=== PATIENT | female | born 1985 | race Caucasian/White ===

== ENCOUNTER 2018-05-25 12:16 | Emergency (ER) | payer SELFPAY ==
[~2018-05-25] VITALS: Ht 154.9 cm; Wt 99.8 kg
[~2018-05-25 12:16] MED LIST: ACET500T68 PO; AMOX875T PO; CLIN300C8 PO; DIPH25CA58 PO; OFLO10DR21 AS; PREN1TAB58 PO
--- NOTE | 2018-05-25 13:02 | ED.ADGEN ---
Past History Past Medical History: Depression, Gallstones Past Surgical History: Cholecystectomy, Smoking: Non-smoker Alcohol Use: None Drug Use: None Adult General HPI HPI Patient believes she may have been bitten by an insect 2 days ago. Patient has swelling and redness on her right posterior arm. She's had pain and swelling for last 2 days, no drainage. Last tetanus shot was 2 years ago. Review of Systems Review of Systems Constitutional: Denies fever or chills Eyes: Denies change in visual acuity, redness, or eye pain HENT: Denies nasal congestion or sore throat Respiratory: Denies cough or shortness of breath Cardiovascular: Denies chest pain or palpitations GI: Denies abdominal pain, nausea, vomiting, bloody stools or diarrhea : Denies dysuria or hematuria Musculoskeletal: Denies back pain or joint pain Integument: Denies rash, with right arm skin lesion Neurologic: Denies headache, focal weakness or sensory changes Endocrine: Denies polyuria or polydipsia All other systems were reviewed and found to be within normal limits, except as documented in this note. Allergies Allergies Allergies Coded Allergies Type Severity Reaction Last Updated Verified peanut Allergy Severe Shortness of Air 03/21/15 Yes ibuprofen Adverse Reaction Unknown vomiting 03/21/15 Yes Physical Exam Physical Exam Constitutional: Well developed, well nourished, no acute distress, non-toxic appearance. HENT: Normocephalic, atraumatic, bilateral external ears normal, oropharynx moist, no oral exudates, nose normal. Eyes: PERRLA, EOMI, conjunctiva normal, no discharge. Neck: Normal range of motion, no tenderness, supple, no stridor. Cardiovascular:Heart rate regular rhythm, no murmur Lungs & Thorax: Bilateral breath sounds clear to auscultation Abdomen: Bowel sounds normal, soft, no tenderness, no masses, no pulsatile masses. Skin: Warm, dry, no erythema, no rash. With right posterior arm localized swelling 2X2cm with induration, no fluctuance Back: No tenderness, no CVA tenderness. Extremities: With posterior arm tenderness and swelling, no cyanosis, no clubbing, ROM intact, no edema. Neurologic: Alert and oriented X 3, normal motor function, normal sensory function, no focal deficits noted. Psychologic: Affect normal, judgement normal, mood normal. Current Patient Data Vital Signs Vital Signs Date Time Temp Pulse Resp B/P (MAP) Pulse Ox O2 Delivery O2 Flow Rate FiO2 05/25/18 13:35 83 20 120/60 (80) 100 Room Air 05/25/18 12:16 98.2 EKG EKG [] Radiology/Procedures Radiology/Procedures [] Course & Med Decision Making Course & Med Decision Making Patient presents with right arm infected skin lesion DDx- Abscess, Cellulitis, infected insect bite, MRSA The patient was stable in the ED. Last tetanus shot up to date. Right arm lesion consistent with infected insect bite, no fluctuance or drainage , doubt abscess. Will treat erythema and induration with Bactrim and Keflex. Patient to follow-up with PCP for wound check and return to the ED if worse. Final Impression Final Impression Clinical Impression Right Arm Infected Insect Bite Right Arm Cellulitis Dragana Disclaimer Shanda Disclaimer This electronic medical record was generated, in whole or in part, using a voice recognition dictation system. Departure Departure: Impression: Primary Impression: Cellulitis of right upper limb Additional Impression: Insect bite of arm, right, infected Scripts Sulfamethoxazole/Trimethoprim (BACTRIM DS TABLET) 1 Each Tablet 2 TAB PO BID, #40 TAB Prov: FAREED JANE MD 05/25/18 Cephalexin (KEFLEX) 500 Mg Capsule 1 CAP PO TID, #30 CAP Prov: FAREED JANE MD 05/25/18 FAREED JANE MD May 25, 2018 13:02
[2018-05-25] MEDS ORDERED: SULF1TAB24 PO (13:14)
[2018-05-25] MEDS ORDERED: CEPH-264 PO (13:14)
[2018-05-25 13:35] VITALS: BP 120/60
== END 2018-05-25 13:25 | disposition home or self-care (01) ==
LOC: ER 12:16
DX: L03.113 Cellulitis of right upper limb (principal); S40.861A Insect bite (nonvenomous) of right upper arm, initial encounter; Z88.6 Allergy status to analgesic agent; Z91.010 Allergy to peanuts; W57.XXXA Bitten or stung by nonvenomous insect and other nonvenomous arthropods, initial encounter; Y93.89 Activity, other specified; Y92.89 Other specified places as the place of occurrence of the external cause; Y99.8 Other external cause status
CPT/HCPCS: 99283

== ENCOUNTER 2018-05-31 12:54 | Emergency (ER) | payer SELFPAY ==
[~2018-05-31] VITALS: Ht 154.9 cm; Wt 99.8 kg
[~2018-05-31 12:54] MED LIST changes: +CEPH-264 PO; +SULF1TAB24 PO
[2018-05-31 13:05] VITALS: BP 136/81
--- NOTE | 2018-05-31 16:31 | ED.ADGEN ---
Past History Past Medical History: Anxiety, Depression, Gallstones Past Surgical History: Cholecystectomy, Smoking: Non-smoker Alcohol Use: None Drug Use: None Adult General HPI HPI Patient is a 32 year old female who presents with foreign body stuck in the left ear. Patient has hearing loss at baseline and wears bilateral hearing aids. Today, the deepest rubber tip off of one of her hearing aids became stuck in the left ear. Incident just happened. She was unable to get it out at home. No additional complaints. No injuries. Review of Systems Review of Systems Constitutional: Denies fever or chills Eyes: Denies change in visual acuity, redness, or eye pain HENT: Denies nasal congestion or sore throat Respiratory: Denies cough or shortness of breath Cardiovascular: No additional information Neurologic: Denies headache All other systems were reviewed and found to be within normal limits, except as documented in this note. Allergies Allergies Allergies Coded Allergies Type Severity Reaction Last Updated Verified peanut Allergy Severe Shortness of Air 03/21/15 Yes ibuprofen Adverse Reaction Unknown vomiting 03/21/15 Yes Physical Exam Physical Exam Constitutional: Well developed, well nourished, no acute distress, non-toxic appearance HENT: Normocephalic, atraumatic, bilateral external ears normal, oropharynx moist, no oral exudates, nose normal, rubber foreign body is easily visualized in the left ear canal Eyes: PERRLA, EOMI, conjunctiva normal Neck: Normal range of motion Cardiovascular:Heart rate regular rhythm Lungs & Thorax: Bilateral breath sounds clear to auscultation Skin: Warm, dry Neurologic: Alert and oriented X 3 Psychologic: Affect normal Current Patient Data Vital Signs Vital Signs Date Time Temp Pulse Resp B/P (MAP) Pulse Ox O2 Delivery O2 Flow Rate FiO2 05/31/18 13:05 98.2 98 18 99 Room Air EKG EKG [] Radiology/Procedures Radiology/Procedures [] Course & Med Decision Making Course & Med Decision Making Pertinent Labs and Imaging studies reviewed. (See chart for details) Patient is evaluated immediately upon arrival to the ER. She does have a foreign body in the left ear. The foreign body is easily visualized on examination. Alligator forceps were used to remove the foreign body. There was no significant trauma or derangement of the tympanic membrane following removal. This was a very fast and non-difficult procedure. Patient is discharged home. Encouraged to follow-up with her primary doctor or come back to the ER for any new or worsening symptoms. Final Impression Final Impression Foreign Body left ear (removed) Shanda Disclaimer Shanda Disclaimer This electronic medical record was generated, in whole or in part, using a voice recognition dictation system. BIMAL APARICIO DO May 31, 2018 16:31
== END 2018-05-31 13:20 | disposition home or self-care (01) ==
LOC: ER 12:54
DX: T16.2XXA Foreign body in left ear, initial encounter (principal); Z88.6 Allergy status to analgesic agent; Z91.010 Allergy to peanuts; X58.XXXA Exposure to other specified factors, initial encounter; Y93.89 Activity, other specified; Y92.89 Other specified places as the place of occurrence of the external cause; Y99.8 Other external cause status
CPT/HCPCS: 69200; 99284

== ENCOUNTER 2019-01-10 02:06 | Emergency (ER) | payer SELFPAY ==
[~2019-01-10] VITALS: Ht 154.9 cm; Wt 100.2 kg
[2019-01-10 02:10] VITALS: BP 131/77
[2019-01-10] MEDS ORDERED: AMOX500C PO (02:34)
--- NOTE | 2019-01-10 02:34 | PHYS DOC ---
Past History Past Medical History: Depression Past Surgical History: Cholecystectomy, Smoking: Non-smoker Alcohol Use: None Drug Use: None Adult General Chief Complaint Chief Complaint: EARACHE/EAR PAIN HPI HPI She is a 33-year-old female presents to the emergency department for evaluation of right ear pain which began this morning. She has not taken anything for pain , denies any fevers or chills. She has had some mild nasal congestion over the past few days. She has not had any fevers or chills. There are no alleviating or exacerbating factors to her symptoms otherwise. Review of Systems Review of Systems Constitutional: Denies fever or chills [] Eyes: Denies change in visual acuity, redness, or eye pain [] HENT: Denies nasal congestion or sore throat [] Respiratory: Denies cough or shortness of breath [] Neurologic: Denies headache, focal weakness or sensory changes [] Allergies Allergies Allergies Coded Allergies Type Severity Reaction Last Updated Verified peanut Allergy Severe Shortness of Air 03/21/15 Yes ibuprofen Adverse Reaction Unknown vomiting 03/21/15 Yes Physical Exam Physical Exam PHYSICAL EXAM: CONSTITUTIONAL: Well developed, well nourished HEAD: normocephalic, atraumatic EENT: PERRL, EOMI. Conjunctivae normal color, sclerae non-icteric; moist mucous membranes. Left tympanic membrane appears normal. The right tympanic membrane is erythematous and distended. There is no auricular tenderness to palpation, there is no mastoid tenderness to palpation. NECK: Supple, non-tender; no meningismus. LUNGS: Lungs CTA, breathing even and unlabored. Normal air movement. HEART: Regular rate and rhythm, no murmur CHEST: No deformity; non-tender ABDOMEN: The abdomen is soft, and non-tender, no masses or bruits. EXTREM: Normal ROM; no deformity, no calf tenderness. Normal pulses palpable in all extremities. There is no pedal edema. SKIN: No rash; no diaphoresis NEURO: Alert; normal speech and cognition; CN's grossly intact; strength grossly intact without focal deficit. BACK: No CVA TTP. Current Patient Data Vital Signs Vital Signs Date Time Temp Pulse Resp B/P (MAP) Pulse Ox O2 Delivery O2 Flow Rate FiO2 01/10/19 02:10 97.9 89 20 99 Room Air EKG EKG [] Radiology/Procedures Radiology/Procedures [] Dragon Disclaimer Dragon Disclaimer This electronic medical record was generated, in whole or in part, using a voice recognition dictation system. Departure Departure: Impression: Primary Impression: Otitis media Disposition: HOME, SELF-CARE Condition: STABLE Referrals: HIREN LAIRD (PCP) Patient Instructions: Otitis Media, Adult Scripts Amoxicillin (AMOXICILLIN) 500 Mg Capsule 1 CAP PO TID for OM, #30 CAP Prov: NADINE RO MD 01/10/19 NADINE RO MD Jan 10, 2019 02:34
[2019-01-10] MEDS ORDERED: AMOXICILLIN 250 MG CAPSULE PO ONE (03:00)
[2019-01-10] MEDS ORDERED: ACETAMINOPHEN 500 MG TABLET PO ONE (03:00)
== END 2019-01-10 03:00 | disposition home or self-care (01) ==
LOC: ER 02:06
DX: H66.91 Otitis media, unspecified, right ear (principal); R09.81 Nasal congestion; F32.9 Major depressive disorder, single episode, unspecified; Z88.6 Allergy status to analgesic agent; Z91.010 Allergy to peanuts
CPT/HCPCS: 99283

== ENCOUNTER 2019-04-25 15:15 | Emergency (ER) | payer SELFPAY ==
[~2019-04-25] VITALS: Ht 154.9 cm; Wt 104.0 kg
[~2019-04-25 15:15] MED LIST changes: +AMOX500C PO
[2019-04-25 15:27] VITALS: BP 147/103
--- NOTE | 2019-04-25 15:38 | PHYS DOC ---
Past History Past Medical History: Depression, GERD Past Surgical History: Cholecystectomy, Smoking: Non-smoker Alcohol Use: None Drug Use: None Adult General Chief Complaint Chief Complaint: FOOT INJURY PAIN HPI HPI 33-year-old female presents with right foot pain. The patient fell off a 2-3 foot step ladder at home 1 weeks ago. She has been able to walk on it. She continues to have pain with weightbearing, flexion, and extension of the foot. The pain radiates up and down the medial half of the foot. Her pain feels deep to that area. There is no obvious deformity or ecchymosis. Patient is to take Tylenol and ibuprofen but it doesn't seem to be getting better. She denies any other injuries or complaints. Review of Systems Review of Systems Constitutional: Denies fever or chills [] Eyes: Denies change in visual acuity, redness, or eye pain [] HENT: Denies nasal congestion or sore throat [] Respiratory: Denies cough or shortness of breath [] Cardiovascular: No additional information not addressed in HPI [] GI: Denies abdominal pain, nausea, vomiting, bloody stools or diarrhea [] : Denies dysuria or hematuria [] Musculoskeletal: Right foot pain[] Integument: Denies rash or skin lesions [] Neurologic: Denies headache, focal weakness or sensory changes [] Endocrine: Denies polyuria or polydipsia [] All other systems were reviewed and found to be within normal limits, except as documented in this note. Allergies Allergies Allergies Coded Allergies Type Severity Reaction Last Updated Verified peanut Allergy Severe Shortness of Air 03/21/15 Yes ibuprofen Adverse Reaction Unknown vomiting 03/21/15 Yes Physical Exam Physical Exam Constitutional: Well developed, well nourished, no acute distress, non-toxic appearance. [] HENT: Normocephalic, atraumatic, bilateral external ears normal, oropharynx moist, no oral exudates, nose normal. [] Eyes: PERRLA, EOMI, conjunctiva normal, no discharge. [] Neck: Normal range of motion, no tenderness, supple, no stridor. [] Cardiovascular:Heart rate regular rhythm, no murmur [] Lungs & Thorax: Bilateral breath sounds clear to auscultation [] Abdomen: Bowel sounds normal, soft, no tenderness, no masses, no pulsatile masses. [] Skin: Warm, dry, no erythema, no rash. [] Back: No tenderness, no CVA tenderness. [] Extremities: Tenderness along the medial aspect of the right foot. No ecchymosis or obvious deformity [] Neurologic: Alert and oriented X 3, normal motor function, normal sensory function, no focal deficits noted. [] Psychologic: Affect normal, judgement normal, mood normal. [] Current Patient Data Vital Signs Vital Signs Date Time Temp Pulse Resp B/P (MAP) Pulse Ox O2 Delivery O2 Flow Rate FiO2 04/25/19 15:27 98.1 111 22 99 Room Air EKG EKG [] Radiology/Procedures Radiology/Procedures [] Impressions: Right foot, 3 views, 04/25/2019: HISTORY: Fall from ladder No fracture or dislocation is identified. There is mild subcutaneous edema. IMPRESSION: No acute bony abnormality is detected. Electronically signed by: Ez Estrada MD (04/25/2019 3:54 PM) [facility] DICTATED AND SIGNED BY: EZ ESTRADA MD DATE: 04/25/19 1554 CC: TONE QUINTERO DO; HIREN LAIRD ~ Course & Med Decision Making Course & Med Decision Making Pertinent Labs and Imaging studies reviewed. (See chart for details) The patient does not have a fracture dislocation. I believe this is a midfoot sprain. I will offer a walking shoe. The patient would like she will. We have fitted her for one. She can continue Tylenol and ibuprofen for pain. She is stable for discharge at this time. [] Dragon Disclaimer Dragon Disclaimer This electronic medical record was generated, in whole or in part, using a voice recognition dictation system. Departure Departure: Impression: Primary Impression: Right foot sprain Disposition: 01 HOME, SELF-CARE Condition: STABLE Referrals: HIREN LAIRD (PCP) Patient Instructions: Foot Sprain Problem Qualifiers Primary Impression: Right foot sprain Encounter type: initial encounter Qualified Codes: S93.601A - Unspecified sprain of right foot, initial encounter TONE QUINTERO DO Apr 25, 2019 15:38
--- NOTE | 2019-04-25 15:56 | RAD ---
Right foot, 3 views, 04/25/2019: HISTORY: Fall from ladder No fracture or dislocation is identified. There is mild subcutaneous edema. IMPRESSION: No acute bony abnormality is detected. Electronically signed by: Ez Estrada MD (04/25/2019 3:54 PM) [facility]
== END 2019-04-25 16:17 | disposition home or self-care (01) ==
LOC: ER 15:15
DX: S93.601A Unspecified sprain of right foot, initial encounter (principal); F32.9 Major depressive disorder, single episode, unspecified; K21.9 Gastro-esophageal reflux disease without esophagitis; Z88.6 Allergy status to analgesic agent; Z91.010 Allergy to peanuts; W11.XXXA Fall on and from ladder, initial encounter; Y93.89 Activity, other specified; Y92.89 Other specified places as the place of occurrence of the external cause; Y99.8 Other external cause status
CPT/HCPCS: 73630; 99284

== ENCOUNTER 2019-10-04 08:42 | Emergency (ER) | payer BC ==
[~2019-10-04] VITALS: Ht 154.9 cm; Wt 103.0 kg
[2019-10-04 08:42] VITALS: BP 132/97
[2019-10-04] MEDS ORDERED: MECL25TA3 PO (09:10)
--- NOTE | 2019-10-04 11:02 | PHYS DOC ---
Past History Past Medical History: Depression, GERD Past Surgical History: Cholecystectomy, Smoking: Non-smoker Alcohol Use: None Drug Use: None Adult General Chief Complaint Chief Complaint: OTHER COMPLAINTS HPI HPI Patient is a 34-year-old female presenting with chief complaint of primary complaint is that of lymph node swelling she is very concerned because she had a 3-year-old that from leukemia she has noticed for the last 2 months lymph nodes in her neck or swelling over the last 2-3 days she thinks they have swollen more she feels dizzy when she is at work she has to grab the counter she works at [employer] she called out today because she was not feeling well. Sumi nix has no appointment on October 09 with an ENT doctor for an evaluation Patient also has body aches she just doesn't feel well all over her elbow hurts her low back has been hurting for over a month now she just cannot feels weak at times. She is worried because there lymph node she feels them in her axilla as well and she is very concerned about the possibility of malignancy Medical decision making I did talk to the patient for several minutes we talked about the general workup of lymphadenopathy which the primary test that she probably needs now is a fine-needle aspiration because she has had these symptoms for over a month she does have some palpable lymphadenopathy in the left anterior neck although I would classify her overall as mild. It was not matted or hard it was minimally tender anyway we will give her a prescription for meclizine neurologic exam showed no objective neurologic deficit she will follow-up October 09 as scheduled with ENT I did give her couple days off work she understood she does appear quite anxious which is understandable given the history that she described above Review of Systems Review of Systems Constitutional: Denies fever or chills [] Eyes: Denies change in visual acuity, redness, or eye pain [] HENT: Respiratory: Denies cough or shortness of breath [] Neurologic: Denies headache, focal weakness or sensory changes [] Endocrine: Denies polyuria or polydipsia [] All other systems were reviewed and found to be within normal limits, except as documented in this note. Allergies Allergies Allergies Coded Allergies Type Severity Reaction Last Updated Verified peanut Allergy Severe Shortness of Air 03/21/15 Yes ibuprofen Adverse Reaction Unknown vomiting 03/21/15 Yes Physical Exam Physical Exam Constitutional: Well developed, well nourished, no acute distress, non-toxic appearance. [] HENT: Normocephalic, atraumatic, bilateral external ears normal, oropharynx moist, no oral exudates, nose normal. [] Eyes: PERRLA, EOMI, conjunctiva normal, no discharge. [] Neck: Normal range of motion, there is approximately 1 cm mildly tender anterior cervical lymphadenopathy more on the left airways patent posterior oropharynx normal I don't appreciate any lymphadenopathy in the axilla or the supraclavicular area Cardiovascular:Heart rate regular rhythm, no murmur [] Lungs & Thorax: Bilateral breath sounds clear to auscultation [] Abdomen: Bowel sounds normal, soft, no tenderness, no masses, no pulsatile masses. [] Skin: Warm, dry, no erythema, rash noted on face Extremities: No tenderness, no cyanosis, no clubbing, ROM intact, no edema. [] Neurologic: Alert and oriented X 3, normal motor function, normal sensory function, no focal deficits noted. [] Psychologic: Anxious Current Patient Data Vital Signs Blood pressure was elevated in the emergency room probably related to anxiety recommended follow-up in 1 week for recheck see nurse's note for complete vitals EKG EKG [] Radiology/Procedures Radiology/Procedures [] Course & Med Decision Making Course & Med Decision Making Pertinent Labs and Imaging studies reviewed. (See chart for details) []34-year-old female with complaint of lymphadenopathy she does have some dizziness known cerebellar findings the [id number] was intact bilaterally, no nerves are intact she does have some mild lymphadenopathy of the anterior neck and she has appropriate follow-up in a few days at the ENT clinic I reassured her as best I could and recommended close follow-up as she already arranged Dragon Disclaimer Shanda Disclaimer This electronic medical record was generated, in whole or in part, using a voice recognition dictation system. Departure Departure: Impression: Primary Impression: Lymphadenopathy Disposition: 01 HOME, SELF-CARE Condition: STABLE Additional Instructions: Thank you for coming to the ER today please see her ENT doctor on October 09 to evaluate your enlarged lymph nodes. Please get her blood pressure checked in 1 month with her primary care doctor as well Scripts Meclizine Hcl (MECLIZINE HCL) 25 Mg Tablet 1 TAB PO PRN TID for vertigo, #30 TAB Prov: WANG VALLES MD 10/04/19 WANG VALLES MD Oct 04, 2019 11:02
== END 2019-10-04 09:15 | disposition home or self-care (01) ==
LOC: ER 08:42
DX: R59.0 Localized enlarged lymph nodes (principal); F32.9 Major depressive disorder, single episode, unspecified; K21.9 Gastro-esophageal reflux disease without esophagitis; Z88.6 Allergy status to analgesic agent; Z91.010 Allergy to peanuts
CPT/HCPCS: 99282

== ENCOUNTER 2020-10-26 09:19 | Emergency (ER) | payer BC ==
[~2020-10-26] VITALS: Ht 154.9 cm; Wt 107.0 kg
[~2020-10-26 09:19] MED LIST changes: +MECL-75 PO
[2020-10-26] MEDS ORDERED: methylPREDNISolone SOD SUCC PF 125 MG/2 ML VIAL. IV ONE (10:00)
[2020-10-26 10:09] VITALS: BP 130/83
[2020-10-26] MEDS ORDERED: METH4TAB2 PO (10:14)
[2020-10-26] MEDS ORDERED: methylPREDNISolone SOD SUCC PF 125 MG/2 ML VIAL. IM ONE (10:15)
--- NOTE | 2020-10-26 10:15 | PHYS DOC ---
Past History Past Medical History: Anxiety, Depression, GERD Past Surgical History: Cholecystectomy, Smoking: Non-smoker Alcohol Use: None Drug Use: None General Adult EDM: Chief Complaint: SKIN PROBLEM HPI: HPI: Patient is a [35-year-old female with pruritic rash that started last night. Patient states she has this rash every 3 to 4 months and has been going on for years. 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 Patient has not had allergy testing and denies any new exposures. 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 Patient has a history to p eanuts. Denies any difficulty swallowing, wheezing, shortness of breath. Patient took 1 dose of Benadryl last night with some improvement has not taken any medications today. Denies any fevers, cough, nausea, vomiting, diarrhea. Review of Systems: Review of Systems: Negative other than noted in HPI Current Medications: Current Meds: Current Medications Medications (Trade) Dose Ordered Sig/Ottoniel Start Time Stop Time Status Last Admin Dose Admin Methylprednisolone Sodium Succinate (SOLU-Medrol 125MG VIAL) 125 mg 1X ONCE 10/26/20 10:15 10/26/20 10:16 UNV Allergies: Allergies: Allergies Coded Allergies Type Severity Reaction Last Updated Verified peanut Allergy Severe Shortness of Air 10/26/20 Yes ibuprofen Adverse Reaction Unknown vomiting 10/26/20 Yes Physical Exam: PE: Constitutional: Well developed, well nourished, no acute distress, non-toxic appearance. [] HENT: Normocephalic, atraumatic, bilateral external ears normal, oropharynx moist, no oral exudates, nose normal. [] Eyes: PERRLA, EOMI, conjunctiva injected, no discharge. [] Neck: Normal range of motion, no tenderness, supple, no stridor. [] Cardiovascular:Heart rate regular rhythm, no murmur [] Lungs & Thorax: Bilateral breath sounds clear to auscultation [] Abdomen: Bowel sounds normal, soft, no tenderness, no masses, no pulsatile masses. [] Skin: Blanching macular rash Back: No tenderness, no CVA tenderness. [] Extremities: No tenderness, no cyanosis, no clubbing, ROM intact, no edema. [] Neurologic: Alert and oriented X 3, normal motor function, normal sensory function, no focal deficits noted. [] Psychologic: Affect normal, judgement normal, mood normal. [] Current Patient Data: Vital Signs: Vital Signs Date Time Temp Pulse Resp B/P (MAP) Pulse Ox O2 Delivery O2 Flow Rate FiO2 10/26/20 09:27 98.6 105 18 163/100 (121) 98 Room Air EKG: EKG: [] Radiology/Procedures: Radiology/Procedures: [] Heart Score: Risk Factors: Risk Factors: DM, Current or recent (<one month) smoker, HTN, HLP, family history of CAD, obesity. Risk Scores: Score 0 - 3: 2.5% MACE over next 6 weeks - Discharge Home Score 4 - 6: 20.3% MACE over next 6 weeks - Admit for Clinical Observation Score 7 - 10: 72.7% MACE over next 6 weeks - Early Invasive Strategies Course & Med Decision Making: Course & Med Decision Making Pertinent Labs and Imaging studies reviewed. (See chart for details) [] Dragon Disclaimer: Dragon Disclaimer: This electronic medical record was generated, in whole or in part, using a voice recognition dictation system. Departure Departure: Impression: Primary Impression: Hives of unknown origin Disposition: 01 DC HOME SELF CARE/HOMELESS Condition: STABLE Referrals: HIREN LAIRD (PCP) Patient Instructions: Hives, [id number] Additional Instructions: Start Medrol Dosepak tomorrow and follow-up with your primary care provider to see about allergen testing Scripts Methylprednisolone (MEDROL) 4 Mg Tab.ds.pk 1 PKG PO UD for hives, #1 PKG Prov: KIARA ARRINGTON MD 10/26/20 KIARA ARRINGTON MD Oct 26, 2020 10:15
== END 2020-10-26 10:25 | disposition home or self-care (01) ==
LOC: ER 09:19
DX: L50.9 Urticaria, unspecified (principal); F41.9 Anxiety disorder, unspecified; F32.9 Major depressive disorder, single episode, unspecified; K21.9 Gastro-esophageal reflux disease without esophagitis; Z91.010 Allergy to peanuts; Z88.6 Allergy status to analgesic agent
CPT/HCPCS: 96372; 99283; J2930

== ENCOUNTER 2021-03-04 15:35 | Emergency (ER) | payer BC ==
[~2021-03-04] VITALS: Ht 154.9 cm; Wt 107.0 kg
[2021-03-04 15:35] VITALS: BP 156/98
[~2021-03-04 15:35] MED LIST changes: -CLIN300C8 PO; +CLIN300C9 PO; +METH4TAB2 PO
[2021-03-04] MEDS: methylPREDNISolone ACETATE 80 MG/ML VIAL. IM ONE (18:00)
[2021-03-04] MEDS ORDERED: PRED20TA PO (18:09)
[2021-03-04] MEDS ORDERED: HYDR25TA PO (18:09)
--- NOTE | 2021-03-04 18:10 | PHYS DOC ---
Past History Past Medical History: Anxiety, Depression, GERD, Other Additional Past Medical Histor: sjogrnes syndrom Past Surgical History: Cholecystectomy, Smoking: Non-smoker Alcohol Use: None Drug Use: None Adult General Chief Complaint Chief Complaint: SKIN RASH/ABSCESS HPI HPI Patient is a 35-year-old female presents to the emergency department complaining of a rash that started 3 days ago. Patient states she has an autoimmune disorder and breaks out with similar rashes. Patient states has been 5 months since she has had an outbreak. Patient states she used to get them quite often when she was younger but has been seeing an helix coil winder who has been helping her with her autoimmune disorder management. Patient states she has a appointment to see her helix coil winder this Sunday. Patient states her rash is typical and presents much like all her other rashes have, patient states she has taken 75 mg of Benadryl 3 to 4 hours ago. Patient states that she continues to itch. Patient states when she gets like this she usually receives a steroid shot in her hip and is given a Medrol Dosepak to go home. Patient denies any airway problems, denies any problems swallowing, denies any drooling, denies any drainage from her nose or ears. Patient states she does have a peanut allergy, however states this rash does not present like her allergies do when she eats peanuts. Patient denies any other physical complaints or physical concerns. Review of Systems Review of Systems 14 body systems of review of systems have been reviewed. See HPI for pertinent positives and negative responses, otherwise all other systems are negative, nonpertinent or noncontributory. Allergies Allergies Allergies Coded Allergies Type Severity Reaction Last Updated Verified peanut Allergy Severe Shortness of Air 10/26/20 Yes ibuprofen Adverse Reaction Unknown vomiting 10/26/20 Yes Physical Exam Physical Exam Constitutional: Well developed, well nourished, no acute distress, non-toxic appearance. 35-year-old female appears anxious. Patient is in no respiratory distress HENT: Normocephalic, atraumatic, bilateral external ears normal, oropharynx moist, no oral exudates, nose normal. Oropharynx moist, pink, no rashes no lesions no infectious process appreciated, no laryngeal swelling, no tonsillar swelling, no uvular edema or swelling appreciated. No lymphadenopathy of the head or neck appreciated, bilateral TMs within normal limits, no drainage from external auditory canals, no drainage from nasal turbinates. Eyes: PERRLA, EOMI, conjunctiva normal, no discharge. Neck: Normal range of motion, no tenderness, supple, no stridor. Cardiovascular:Heart rate regular rhythm, no murmur, heart sounds S1-S2 Lungs & Thorax: Bilateral breath sounds clear to auscultation no adventitious lung sounds auscultation. Abdomen: Bowel sounds normal, soft, no tenderness, no masses, no pulsatile masses. Skin: Warm, dry, no erythema, acute raised urticaria rash to arms anterior and posterior trunk, legs, neck. No drainage or lesions noted from rash. Color ranged from light pink to red. Back: No tenderness, no CVA tenderness. Extremities: No tenderness, no cyanosis, no clubbing, ROM intact, no edema. Neurologic: Alert and oriented X 3, normal motor function, normal sensory function, no focal deficits noted. Psychologic: Affect normal, judgement normal, mood normal. Current Patient Data Vital Signs Vital Signs Date Time Temp Pulse Resp B/P (MAP) Pulse Ox O2 Delivery O2 Flow Rate FiO2 03/04/21 15:35 98.4 105 18 156/98 (117) 98 Room Air EKG EKG [] Radiology/Procedures Radiology/Procedures [] Heart Score C/O Chest Pain: No Risk Factors: Risk Factors: DM, Current or recent (<one month) smoker, HTN, HLP, family history of CAD, obesity. Risk Scores: Risk Factors: DM, Current or recent (<one month) smoker, HTN, HLP, family history of CAD, obesity. Course & Med Decision Making Course & Med Decision Making Pertinent Labs and Imaging studies reviewed. (See chart for details) 35-year-old female, vital signs reviewed, presents emergency department concerning a itchy rash for the past 3 days. Physical examination consistent with acute urticaria, this does not appear to be a contact dermatitis, patient states she does have an allergy to peanuts however does not present like her peanut rash allergy. Patient states she has had this type of rash breakout throughout her life and attributes this to her autoimmune disorder. Patient states she has periodic visits to emergency departments for IM injections of steroid and prescriptions for de-escalating oral steroid dose for home. The patient is in no respiratory distress, the patient does not complain of any swelling in her throat or mouth. Discussed with patient will give 80 mg Depo- Medrol, give prescription for 20 mg prednisone x5 days, p.o. hydroxyzine for itching. Patient is amendable to this plan. Discussed with patient strict return to ER precautions. Keep her appointment with her helix coil winder this coming Sunday. Patient gave verbal understanding of discharge home instructions, hydroxyzine use for itching, 20 mg prednisone p.o. daily x5 days prescription, states will keep her appointment this Sunday with her helix coil winder, a verbal understanding of strict return to ER precautions and concerns, patient was discharged home without incident. Dragon Disclaimer Dragon Disclaimer This electronic medical record was generated, in whole or in part, using a voice recognition dictation system. Departure Departure: Impression: Primary Impression: Acute urticaria Disposition: HOME / SELF CARE / HOMELESS Condition: GOOD Referrals: HIREN LAIRD (PCP) Additional Instructions: You are seen today in the emergency department for your rash outbreak. As you indicated this is a typical reaction that requires an IM injection of a steroid and a prescription for prednisone at home. Please keep your appointment with Dr. CRAMER this Sunday and let her know you were given 80 mg of Depo-Medrol IM in the emergency department and started on 20 mg prednisone p.o. x5 days. Please return immediately to the emergency department for worsening symptoms or respiratory distress. I am starting you on hydroxyzine for itching. Please use prescribed medications as directed. EMERGENCY DEPARTMENT GENERAL DISCHARGE INSTRUCTIONS Thank you for coming to [facility] (ED) today and trusting us with you care. We trust that you had a positivie experience in our Emergency Department. If you wish to speak to the department management, you may call the director at [phone]. YOUR FOLLOW UP INSTRUCTIONS ARE FOLLOWS: 1. Do you have a private Doctor? If you do not have a private doctor, please ask for a resource list of physicians or clinics that may be able to assist you with follow up care. 2. The Emergency Physician has interpreted your x-rays. The X-Ray specialist will also review them. If there is a change in the findings, you will be notified in 48 hours when at all possible. 3. A lab test or culture has been done, your results will be reviewed and you will be notified if you need a change in treatment. ADDITIONAL INSTRUCTIONS AND INFORMATION: 1. Your care today has been supervised by a physician who is specially trained in emergency care. Many problems require more than one evaluation for a complete diagnosis and treatment. We recommend that you schedule your follow up appointment as recommended to ensure complete treatment of you illness or injury. If you are unable to obtain follow up care and continue to have a problem, or if your condition worsens, we recommend that you return to the ED. 2. We are not able to safely determine your condition over the phone nor are we able to give sound medical advice over the phone. For these safety reasons, if you call for medical advice we will ask you to come to the ED for further evaluation. 3. If you have any questions regarding these discharge instructions please call the ED at [phone]. SAFETY INFORMATION: In the interest of safety, wellness, and injury prevention; we encourage you to wear your sealbelt, if you smoke; quite smoking, and we encourage family to use a protective helmet for bicycling and other sporting events that present an increased risk for head injury. IF YOUR SYMPTOMS WORSEN OR NEW SYMPTOMS DEVELOP, OR YOU HAVE CONCERNS ABOUT YOUR CONDITION; OR IF YOUR CONDITION WORSENS WHILE YOU ARE WAITING FOR YOUR FOLLOW UP APPOINTMENT; EITHER CONTACT YOUR PRIMARY CARE DOCTOR, THE PHYSICIAN WHOSE NAME AND NUMBER YOU WERE GIVEN, OR RETURN TO THE ED IMMEDIATELY. Scripts Hydroxyzine Hcl (HYDROXYZINE HCL) 25 Mg Tablet 1 TAB PO TID PRN for ALLERGIES, #15 TAB 0 Refills Prov: JAIRO MONROY APRN 03/04/21 Prednisone (PREDNISONE) 20 Mg Tablet 1 TAB PO DAILY for allergies for 5 Days, #5 TAB 0 Refills Prov: JAIRO MONROY APRN 03/04/21 JAIRO MONROY APRN March 04, 2021 18:10
== END 2021-03-04 18:15 | disposition home or self-care (01) ==
LOC: ER 15:35
DX: L50.8 Other urticaria (principal); K21.9 Gastro-esophageal reflux disease without esophagitis; Z91.010 Allergy to peanuts; Z88.6 Allergy status to analgesic agent
CPT/HCPCS: 96372; 99283; J1040

== ENCOUNTER 2021-11-09 17:24 | Emergency (ER) | payer BC ==
[~2021-11-09] VITALS: Ht 154.9 cm; Wt 107.0 kg
[~2021-11-09 17:24] MED LIST changes: +CLIN-95 PO; -CLIN300C9 PO; +HYDR25TA PO; +PRED20TA PO
[2021-11-09 18:44] LABS: INFLUENZA A PATIENT NEGATIVE (NEGATIVE); INFLUENZA B PATIENT NEGATIVE (NEGATIVE)
--- NOTE | 2021-11-10 02:09 | PHYS DOC ---
Past History Past Medical History: Anxiety, Depression, GERD, Migraines, Other Additional Past Medical Histor: sjogrnes syndrom Past Surgical History: Cholecystectomy, Smoking: Non-smoker Alcohol Use: None Drug Use: None General Adult EDM: Chief Complaint: HEADACHE HPI: HPI: ".. I ve had a bad migraine the last couple days.. nausea.. You seen me before for parotid infiltrate due Sorigen" Patient is a 36 year old female who presents with above hx. a typical migraine for her. No hx. Fever, trauma, chills, immuno.suppression, IV drug use , specific ill contacts. + Rheumatology hx. Review of Systems: Review of Systems: Constitutional: Denies fever or chills Eyes: Denies change in visual acuity HENT: Denies nasal congestion or sore throat Respiratory: Denies cough or shortness of breath Cardiovascular: Denies chest pain or edema GI: Denies abdominal pain, nausea, vomiting, bloody stools or diarrhea : Denies dysuria Musculoskeletal: Denies back pain or joint pain Integument: Denies rash Neurologic: Denies headache, focal weakness or sensory changes Endocrine: Denies polyuria or polydipsia Lymphatic: Denies swollen glands Psychiatric: Denies depression or anxiety Allergies: Allergies: Allergies Coded Allergies Type Severity Reaction Last Updated Verified peanut Allergy Severe Shortness of Air 10/26/20 Yes ibuprofen Adverse Reaction Unknown vomiting 10/26/20 Yes Physical Exam: PE: Constitutional: Well developed, well nourished, no acute distress, non-toxic appearance. [] HENT: Normocephalic, atraumatic, bilateral external ears normal, oropharynx moist, no oral exudates, nose normal. [] Eyes: PERRLA, EOMI, conjunctiva normal, no discharge. [] Neck: Normal range of motion, no tenderness, supple, no stridor. [] Cardiovascular:Heart rate regular rhythm, no murmur [] Lungs & Thorax: Bilateral breath sounds clear to auscultation [] Abdomen: Bowel sounds normal, soft, no tenderness, no masses, no pulsatile masses. [] Skin: Warm, dry, no erythema, no rash. [] Back: No tenderness, no CVA tenderness. [] Extremities: No tenderness, no cyanosis, no clubbing, ROM intact, no edema. [] Neurologic: Alert and oriented X 3, normal motor function, normal sensory function, no focal deficits noted. [] Psychologic: Affect normal, judgement normal, mood normal. [] Current Patient Data: Labs: Laboratory Tests Test 11/09/21 17:51 Influenza Type A (Rapid) Negative (NEGATIVE) Influenza Type B (Rapid) Negative (NEGATIVE) SARS-CoV-2 Antigen (Rapid) Negative (NEGATIVE) Vital Signs: Vital Signs Date Time Temp Pulse Resp B/P (MAP) Pulse Ox O2 Delivery O2 Flow Rate FiO2 11/09/21 17:57 98.2 101 18 156/98 (117) 98 Room Air EKG: EKG: [] Radiology/Procedures: Radiology/Procedures: [][address] [address] IMAGING REPORT Signed PATIENT: KIARA PHILIP ACCOUNT: [id number] : 1985 LOCATION: ER AGE: 36 SEX: F EXAM STATUS: REG ER ORD. PHYSICIAN: SAULO TRAN MD REASON: Intractable headache PROCEDURE: CT HEAD AND CERVICAL SPINE WO CT HEAD AND C-SPINE WO History: Reason: Intractable headache / Spl. Instructions: / History: Comparison: March 21, 2015 Technique: Noncontrast CT imaging was performed of the head and cervical spine. Coronal and sagittal reconstructions were performed. Exposure: One or more of the following individualized dose reduction techniques were utilized for this examination: 1. Automated exposure control 2. Adjustment of the mA and/or kV according to patient size 3. Use of iterative reconstruction technique. Findings: Head CT: No intracranial hemorrhage. No mass effect. No hydrocephalus. Extra- axial spaces are unremarkable. Imaged orbits are unremarkable. Imaged paranasal sinuses and mastoid air cells are clear. No acute calvarial fracture. Cervical spine CT: Normal vertebral body height and alignment. No fracture. Soft tissues unremarkable. Impression: Head CT: 1. No acute intracranial abnormality. Cervical spine CT: 1. No acute fracture or subluxation of the cervical spine. Electronically signed by: Sarabjit Tolentino DO (11/10/2021 2:52 AM) [facility] DICTATED AND SIGNED BY: SARABJIT TOLENTINO DO DATE: 11/10/21 0247 CC: SAULO TRAN MD; HIREN LAIRD ~MTH0 0 Heart Score: C/O Chest Pain: N/A Risk Factors: Risk Factors: DM, Current or recent (<one month) smoker, HTN, HLP, family history of CAD, obesity. Risk Scores: Score 0 - 3: 2.5% MACE over next 6 weeks - Discharge Home Score 4 - 6: 20.3% MACE over next 6 weeks - Admit for Clinical Observation Score 7 - 10: 72.7% MACE over next 6 weeks - Early Invasive Strategies Course & Med Decision Making: Course & Med Decision Making Pertinent Labs and Imaging studies reviewed. (See chart for details) Meds . and followup as per D/ C instructions Impression: 1.Migraine Variant 2.Rheumatology- Dx. 's Sjogren Not loss of dictation [id number] [] Dragon Disclaimer: Dragon Disclaimer: This electronic medical record was generated, in whole or in part, using a voice recognition dictation system. Departure Departure: Referrals: HIREN LAIRD (PCP) Scripts Sumatriptan Succinate (IMITREX) 100 Mg Tablet 100 MG PO 1X for at lst of migraine, #10 TAB Prov: SAULO TRAN MD 11/10/21 Ondansetron Hcl (ONDANSETRON HCL) 4 Mg/5 Ml Solution 8 MG PO qidp for n, #30 MISC Prov: SAULO TRAN MD 11/10/21 Shanda Disclaimer This chart was dictated in whole or in part using Voice Recognition software in a busy, high-work load, and often noisy Emergency Department environment. It may contain unintended and wholly unrecognized errors or omissions. SAULO TRAN MD Nov 10, 2021 02:09
[2021-11-10] MEDS ORDERED: ONDANSETRON PF 4 MG/2 ML VIAL. IVP ONE (02:15)
[2021-11-10] MEDS ORDERED: IV RINGERS SOLUTION,LACTATED 1,000 ML IV ONE (02:15)
[2021-11-10] MEDS ORDERED: ACETAMINOPHEN 500 MG TABLET PO ONE (02:15)
--- NOTE | 2021-11-10 02:55 | RAD ---
CT HEAD AND C-SPINE WO History: Reason: Intractable headache / Spl. Instructions: / History: Comparison: March 21, 2015 Technique: Noncontrast CT imaging was performed of the head and cervical spine. Coronal and sagittal reconstructions were performed. Exposure: One or more of the following individualized dose reduction techniques were utilized for thi s examination: 1. Automated exposure control 2. Adjustment of the mA and/or kV according to patient size 3. Use of iterative reconstruction technique. Findings: Head CT: No intracranial hemorrhage. No mass effect. No hydrocephalus. Extra-axial spaces are unrema rkable. Imaged orbits are unremarkable. Imaged paranasal sinuses and mastoid air cells are clear. No acute ca lvarial fracture. Cervical spine CT: Normal vertebral body height and alignment. No fracture. Soft tissues unremarkable. Impression: Head CT: 1. No acute intracranial abnormality. Cervical spine CT: 1. No acute fracture or subluxation of the cervical spine. Electronically signed by: Sarabjit Tolentino DO (11/10/2021 2:52 AM) [facility]
[2021-11-10] MEDS ORDERED: ONDA4SOL PO (04:35)
[2021-11-10] MEDS ORDERED: SUMA100T3 PO (04:35)
[2021-11-10] MEDS ORDERED: KETOROLAC 30 MG/ML VIAL. IVP ONE (05:00)
[2021-11-10] MEDS ORDERED: SUMAtriptan SUCC 6 MG/0.5 ML VIAL SQ ONE (05:00)
[2021-11-10 06:00] VITALS: BP 163/88
== END 2021-11-10 06:13 | disposition home or self-care (01) ==
LOC: ER 17:24
DX: G43.909 Migraine, unspecified, not intractable, without status migrainosus (principal); M35.00 Sjogren syndrome, unspecified; K21.9 Gastro-esophageal reflux disease without esophagitis; F41.9 Anxiety disorder, unspecified; F32.9 Major depressive disorder, single episode, unspecified; Z20.822 Contact with and (suspected) exposure to COVID-19; Z91.010 Allergy to peanuts; Z88.8 Allergy status to other drugs, medicaments and biological substances
CPT/HCPCS: 87428; 96361; 96372; 96374; 96375; 99284; J1885; J2405; J3030; J7120